=== PATIENT | male | born 1935 ===

== ENCOUNTER → 2017-04-28 | Outpatient (CLI) | payer MEDICARE, OTHER ==
--- NOTE | 2017-04-28 11:43 | RADIOLOGY REPORT (SQ) ---
EXAM DESCRIPTION: U/S RETROPERITON (RENAL/AORTA) COMPLETED DATE/TIME: 04/28/2017 11:07 am REASON FOR STUDY: N18.3 CHRONIC KIDNEY DISEASE, STAGE 3 (MODERATE) N18.3 CHRONIC KIDNEY DISEASE, ST AGE 4 (MODERATE) COMPARISON: None. TECHNIQUE: Dynamic and static grayscale images acquired of the kidneys and bladder and recorded on P ACS. Additional selected color Doppler and spectral images recorded. LIMITATIONS: None. FINDINGS: RIGHT KIDNEY: Small, 8.3 cm in length. Normal cortical thickness and echogenicity. No pedrito id or suspicious masses. 1.6 cm and 1 cm midpole renal cortical cysts. No hydronephrosis. No calcif ications. LEFT KIDNEY: Small, 8.7 cm in length. Normal cortical thickness and echogenicity. No solid or suspic ious masses. No hydronephrosis. No calcifications. BLADDER: No masses. OTHER FINDINGS: Enlarged prostate, at least 5 x 5 cm in size, indenting the bladder base IMPRESSION: Small kidneys bilaterally with grossly normal cortical thickness and echogenicity. Enlarged prostate TECHNICAL DOCUMENTATION: JOB ID: [id number] [employer]- All Rights Reserved
== END ==
LOC: RAD 09:46
PROVIDERS: ATTEND Internal Medicine Nephrology
DX: N18.3 Chronic kidney disease, stage 3 (moderate) (principal)
CPT/HCPCS: 76770